=== PATIENT | female | born 1950 | race Caucasian/White ===

== ENCOUNTER 2018-11-26 07:32 | Inpatient (IN) | payer MEDICARE, BC ==
[2018-11-26] MEDS: DEXAMETHASONE 4 MG/ML 1 ML INJ IV (08:54)
[2018-11-26] MEDS: ACETAMINOPHEN 1000MG/100ML IV 100 ML IVPB (08:55)
[2018-11-26] MEDS ORDERED: PROPOFOL 20 ML (09:13)
[2018-11-26] MEDS ORDERED: LIDOCAINE 2% (SDV) 5 ML INJ (09:13)
[2018-11-26] MEDS ORDERED: FENTAnyl 50 MCG/ML VIAL (09:13)
[2018-11-26] MEDS ORDERED: ETOMIDATE 20 MG INJ (09:13)
[2018-11-26] MEDS ORDERED: MIDAZOLAM 1 MG/ML 2 ML INJ (09:13)
[2018-11-26] MEDS ORDERED: ROPIVACAINE 0.2% 20 ML VIAL (09:17)
[2018-11-26] MEDS: CLINDAMYCIN 600 MG/D5W (PMX) 50 ML IVPB (10:00)
[2018-11-26] MEDS ORDERED: CLINDAMYCIN 600 MG/D5W (PMX) 50 ML IVPB (10:53)
[2018-11-26] MEDS ORDERED: ONDANSETRON 4 MG INJ (10:56)
[2018-11-26] MEDS ORDERED: DEXAMETHASONE 4 MG/ML 5 ML INJ (10:56)
[2018-11-26] MEDS: LACTATED RINGER'S 1,000 ML IV ×3 (11:00→18:18)
[2018-11-26] MEDS ORDERED: ONDANSETRON 4 MG INJ IV (11:00)
[2018-11-26] MEDS ORDERED: MEPERIDINE 25 MG INJ IV (11:00)
[2018-11-26] MEDS ORDERED: LABETALOL HCL 20MG INJ IV (11:00)
[2018-11-26] MEDS ORDERED: DIPHENHYDRAMINE 50 MG INJ IV (11:00)
[2018-11-26] MEDS ORDERED: HYDROmorphONE 1 MG/5 ML IV SYRINGE IV ×2 (11:00)
[2018-11-26] MEDS ORDERED: hydrALAzine 20 MG INJ IV (11:00)
[2018-11-26] MEDS ORDERED: NALOXONE (0.4 MG/ML) INJ IV (12:30)
[2018-11-26] MEDS ORDERED: oxyCODONE 5 MG TAB PO (12:30)
[2018-11-26] MEDS ORDERED: NACL 0.9% 3 ML SYG IV (12:30)
[2018-11-26] MEDS: TRANEXAMIC ACID 1,000 MG in D5W 100 ML AT INCISION X1 IVPB (12:30)
[2018-11-26] MEDS ORDERED: MAGNESIUM HYDROXIDE 30ML CUP PO (12:30)
[2018-11-26] MEDS: BACITRACIN 50000 UNITS INJ IRR ×2 (12:40)
[2018-11-26] MEDS: POLYMYXIN B 500000 UNIT INJ (12:40)
[2018-11-26] MEDS: GABAPENTIN 100 MG CAP PO ×2 (13:00→21:21)
[2018-11-26] MEDS: CLINDAMYCIN 900 MG/D5W (PMX) 50 ML IVPB ×2 (13:21→21:21)
[2018-11-26] MEDS: TRANEXAMIC ACID 1,000 MG in D5W 100 ML AT CLOSURE X1 IVPB (13:47)
[2018-11-26] MEDS: KETOROLAC 15 MG INJ IV (21:21)
[2018-11-26] MEDS: traZODone 50 MG TAB PO (21:21)
[2018-11-26] MEDS: oxyCODONE 5 MG TAB PO (22:36)
[2018-11-27] MEDS: LACTATED RINGER'S 1,000 ML IV ×2 (00:08)
[2018-11-27 05:24] LABS: ADD MAN DIFF? NO
[2018-11-27 05:38] LABS: WHITE BLOOD COUNT 12.8 10^3/ul (4.8-10.8)
[2018-11-27 05:38] LABS: BASOPHILS % 0.1 % (0.0-2.0); HEMATOCRIT 27.1 % (37.0-47.0); HEMOGLOBIN 9.3 g/dl (12.0-16.0); LYMPHOCYTES # 0.8 10^3/ul (0.8-2.9); MEAN CORPUSCULAR HGB CONC 34.3 g/dl (32.0-37.0); MEAN CORPUSCULAR VOLUME 90.3 fl (82.0-101.0); MEAN PLATELET VOLUME 9.9 fl (7.4-10.4); MONOCYTE # 0.9 10^3/ul (0.3-0.9); NEUTROPHIL # 11.1 10^3/ul (1.6-7.5); NEUTROPHILS % 86.3 % (39.0-77.0); PLATELET COUNT 254 10^3/UL (140-415); RED CELL DISTRIBUTION WIDTH 12.6 % (11.5-14.5)
[2018-11-27] MEDS: PANTOPRAZOLE (EC) 40 MG TAB PO (05:39)
[2018-11-27] MEDS: CLINDAMYCIN 900 MG/D5W (PMX) 50 ML IVPB (05:39)
[2018-11-27] MEDS: KETOROLAC 15 MG INJ IV (05:40)
[2018-11-27 05:54] LABS: ANION GAP 8 (5-13); BLOOD UREA NITROGEN 21 mg/dl (7-20); CALCIUM 8.4 mg/dl (8.4-10.2); CARBON DIOXIDE 25 mmol/L (21-31); CHLORIDE 102 mmol/L (97-110); CREATININE 0.78 mg/dl (0.44-1.00); Estimated GFR > 60 mL/min (>60); GLUCOSE 135 mg/dl (70-220); POTASSIUM 4.1 mmol/L (3.5-5.1); SODIUM 135 mmol/L (135-144)
[2018-11-27] MEDS: GABAPENTIN 100 MG CAP PO (08:47)
[2018-11-27] MEDS: ASPIRIN (EC) 81 MG TAB PO (08:47)
[2018-11-27] MEDS: oxyCODONE 5 MG TAB PO (08:48)
[2018-11-27] MEDS: DOCUSATE SODIUM 100 MG CAP PO (08:48)
[2018-11-27] MEDS ORDERED: ONDANSETRON 4 MG INJ IV (12:30)
== END 2018-11-27 11:50 | disposition home health service (06) | DRG 470 ==
LOC: REC 07:32 → MS1 13:44
PROC: 0SR904A Replacement of Right Hip Joint with Ceramic on Polyethylene Synthetic Substitute, Uncemented, Open Approach (ICD-10-PCS; principal; 2018-11-26 10:00)
DX: M16.11 Unilateral primary osteoarthritis, right hip (principal); E03.9 Hypothyroidism, unspecified; I10 Essential (primary) hypertension; E78.5 Hyperlipidemia, unspecified
CPT/HCPCS: 73530; 80048; 85025; 86850; 86900; 86901; 87081; 88304; 88311; 90686; 97116; 97162; 97166; 97530; 97535